=== PATIENT | male | born 1975 | race Caucasian/White ===

== ENCOUNTER 2019-12-07 23:34 | Emergency (ER) | payer SELFPAY ==
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
[2019-12-07] MEDS ORDERED: Lidocaine 1% 20 ML MDV INJECT ONE (23:49)
[2019-12-07] MEDS ORDERED: Lidocaine 1% 30 ML SDV ONE (23:50)
== END 2019-12-08 00:28 | disposition home or self-care (01) ==
LOC: JD.ED 23:34
DX: S01.01XA Laceration without foreign body of scalp, initial encounter (principal); W22.8XXA Striking against or struck by other objects, initial encounter
CPT/HCPCS: 12002; 99282; 99283-25